=== PATIENT | male | born 1960 | race Caucasian/White ===

== ENCOUNTER 2016-05-26 14:30 | Emergency (ER) | payer OTHER ==
[~2016-05-26] VITALS: Ht 170.2 cm; Wt 111.9 kg
[~2016-05-26 14:30] MED LIST: ATENOLOL25 MG PO; HALOPERIDOL1 MG PO; HYDROCHLOROTHIA25 MG PO; NORVASC10 MG PO; PRINIVIL20 MG PO; ZYPREXA10 MG PO
[2016-05-26 16:46] LABS: MCH 30.6 PG (29.0-34.0); MCHC 33.7 G/DL (30.0-36.0); MCV 90.7 FL (86-99); MEAN PLAT.VOLUME 9.3 uM^3 (9.0-12.4); PLATELET COUNT 247 K/uL (156-360); RBC DIS.WIDTH-SD 43.1 % (39-53); RED BLOOD COUNT 4.74 M/uL (4.00-5.50); WHITE BLOOD COUNT 6.7 K/uL (4.1-10.2)
[2016-05-26 17:00] LABS: CHLORIDE 103 mEq/L (99-109); POTASSIUM 3.9 mEq/L (3.7-5.4); SODIUM 140 mEq/L (136-147)
[2016-05-26 17:03] LABS: GLUCOSE 98 mg/dL (70-99)
[2016-05-26 17:04] LABS: ANION GAP 11 MEQ/L (2-14); Estimated Average Glucose 105 mg/dL (70-123); HEMOGLOBIN A1c (GLYCOHEMOGLOB) 5.3 % HGB (Below 5.7)
[2016-05-26 17:05] LABS: TOTAL BILIRUBIN 0.4 mg/dL (0.0-1.0)
[2016-05-26 17:06] LABS: ALKALINE PHOSPHATASE 84 IU/L (3-129); GFR ESTIMATE (CALCULATED) > 59 mL/min/
[2016-05-26 17:07] LABS: UREA NITROGEN (BUN) 14 mg/dL (9-23)
[2016-05-26] MEDS ORDERED: HALDOL1 MG PO (17:17)
[2016-05-26] MEDS ORDERED: NORVASC10 MG PO (17:17)
[2016-05-26] MEDS ORDERED: PRINIVIL20 MG PO (17:17)
[2016-05-26] MEDS ORDERED: OLANZAPINE10 MG PO (17:17)
[2016-05-26] MEDS ORDERED: ATENOLOL25 MG PO (17:17)
[2016-05-26] MEDS ORDERED: HYDROCHLOROTHIA25 MG PO (17:17)
[2016-05-26 17:36] LABS: TROP-I INTERPRETATION NEGATIVE; TROPONIN-I < 0.01 ng/mL (0.0-0.30)
[2016-05-26 17:51] VITALS: BP 137/83
== END 2016-05-26 18:01 | disposition home or self-care (01) ==
LOC: EME 14:30
PROVIDERS: Nurse Practitioner Family
DX: R00.0 Tachycardia, unspecified (principal); Z76.0 Encounter for issue of repeat prescription; E11.9 Type 2 diabetes mellitus without complications; E78.5 Hyperlipidemia, unspecified; I10 Essential (primary) hypertension; Z87.891 Personal history of nicotine dependence
CPT/HCPCS: 80053; 83036; 84484; 85027; 93005; 99281; 99284